=== PATIENT | female | born 1985 | race American Indian/Alaskan Native ===

== ENCOUNTER 2019-12-10 15:09 | Emergency (ER) | payer SELFPAY ==
[2019-12-10 15:20] VITALS: BP 132/69
--- NOTE | 2019-12-10 16:12 | XRay Report ---
LEFT FOOT, 2 VIEWS INDICATION / CLINICAL INFORMATION: Dropped heavy object on left foot. COMPARISON: None available. FINDINGS: Minimally displaced fracture of the proximal phalanx of the fourth toe. Signer Name: Artie Moulton MD Signed: 12/10/2019 4:08 PM Workstation Name: [id number]
--- NOTE | 2019-12-10 16:25 | Emergency Department Report ---
ED Lower Extremity HPI - General Chief Complaint: Extremity Injury, Lower Stated Complaint: LEFT FOOT PAIN Time Seen by Provider: 12/10/19 15:49 Source: patient Mode of arrival: Ambulatory Limitations: No Limitations - History of Present Illness Initial Comments: 34-year-old -Japanese female presents to the emergency room for 2-day history of left foot pain. Patient states that a heavy object had fallen her foot while she was at work on Thursday. 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 Patient has a past medical history of asthma. MD Complaint: foot injury Onset/Timin -: days(s) Injury: Foot: Left Type of Injury: other (Heavy object falling on foot) Place: work Severity scale (0 -10): 10 Improves With: NSAID Worsens With: weight bearing Treatments Prior to Arrival: NSAIDS - Related Data Previous Rx's Medication Instructions Recorded Last Taken Type ALBUTEROL Inhaler(NF) [VENTOLIN 1 puff IH QID PRN #1 inha 12/15/18 Unknown Rx Inhaler(NF)] Fluticasone [Flonase] 1 spray NS QDAY #1 bottle 12/15/18 Unknown Rx Montelukast [Singulair] 10 mg PO QPM #30 tablet 12/15/18 Unknown Rx Prednisone [predniSONE 10 mg 10 mg PO .TAPER #1 tab.ds.pk 12/15/18 Unknown Rx (6-Day Pack, 21 Tabs)] Cyclobenzaprine [Flexeril] 10 mg PO QHS PRN #10 tablet 05/06/19 Unknown Rx HYDROcodone/APAP 7.5-325 [Nelson 1 each PO Q8HR PRN #12 tablet 12/10/19 Unknown Rx 7.5/325] Ibuprofen [Motrin 800 MG tab] 800 mg PO Q8HR PRN #14 tablet 12/10/19 Unknown Rx Allergies Allergy/AdvReac Type Severity Reaction Status Date / Time No Known Allergies Allergy Unverified 12/15/18 19:09 ED Review of Systems ROS: Stated complaint: LEFT FOOT PAIN Other details as noted in HPI ED Past Medical Hx - Past Medical History Previous Medical History?: Yes Hx Asthma: Yes - Surgical History Past Surgical History?: Yes Additional Surgical History: Hysterectomy - Social History Smoking Status: Never Smoker Substance Use Type: Alcohol - Medications Home Medications: Home Medications Medication Instructions Recorded Confirmed Last Taken Type ALBUTEROL Inhaler(NF) [VENTOLIN 1 puff IH QID PRN #1 inha 12/15/18 Unknown Rx Inhaler(NF)] Fluticasone [Flonase] 1 spray NS QDAY #1 bottle 12/15/18 Unknown Rx Montelukast [Singulair] 10 mg PO QPM #30 tablet 12/15/18 Unknown Rx Prednisone [predniSONE 10 mg 10 mg PO .TAPER #1 tab.ds.pk 12/15/18 Unknown Rx (6-Day Pack, 21 Tabs)] Cyclobenzaprine [Flexeril] 10 mg PO QHS PRN #10 tablet 05/06/19 Unknown Rx HYDROcodone/APAP 7.5-325 [Nelson 1 each PO Q8HR PRN #12 tablet 12/10/19 Unknown Rx 7.5/325] Ibuprofen [Motrin 800 MG tab] 800 mg PO Q8HR PRN #14 tablet 12/10/19 Unknown Rx ED Physical Exam - General Limitations: No Limitations ED Course Vital Signs 12/10/19 15:13 Temperature 98.1 F Pulse Rate 88 Respiratory 18 Rate Blood Pressure 132/69 O2 Sat by Pulse 99 Oximetry ED Lower Extremity MDM - Radiology Data Radiology results: report reviewed Referring Physician:YOLIE SANDERSPatient Name:SHERI ARTEAGAPatient ID:[id number] of :[id number]:FemaleAccession:[id number] Date:[id number] Status:Finalized Findings [facility] [address] [place] [address] XRay Report Signed Patient: SHERI ARTEAGA MR#: [id number] : 1985 Acct:[id number] Age/Sex: 34 / F ADM Date: 12/10/19 Loc: ED Attending Dr: Ordering Physician: ELINOR GRAY Date of Service: 12/10/19 Procedure(s): XR foot 2V LT Accession Number(s): [id number] cc: ELINOR GRAY Fluoro Time In Minutes: LEFT FOOT, 2 VIEWS INDICATION / CLINICAL INFORMATION: Dropped heavy object on left foot. COMPARISON: None available. FINDINGS: Minimally displaced fracture of the proximal phalanx of the fourth toe. Signer Name: Artie Moulton MD Signed: 12/10/2019 4:08 PM Workstation Name: [id number] Transcribed By: ARMAAN Dictated By: Artie Moulton MD - Medical Decision Making 34-year-old -Japanese female presents to the emergency room for 2-day h istory of left foot pain. Patient states that a heavy object had fallen her foot while she was at work on Thursday. 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 Patient has a past medical history of asthma. Critical care attestation.: If time is entered above; I have spent that time in minutes in the direct care of this critically ill patient, excluding procedure time. ED Disposition Clinical Impression: Toe fracture, left Disposition: DC- TO HOME OR SELFCARE Is pt being admited?: No Does the pt Need Aspirin: No Condition: Stable Instructions: Toe Fracture (ED) Additional Instructions: X-ray shows you have a fracture of your fourth toe on your left foot. Take pain medication only as needed and do not have operate heavy machinery while taking Nelson. Take ibuprofen every 6-8 hours as needed for pain. It is very important for you to follow-up with an orthopedic provider I have listed 1 below for your convenience. Prescriptions: Ibuprofen [Motrin 800 MG tab] 800 mg PO Q8HR PRN #14 tablet PRN Reason: pain HYDROcodone/APAP 7.5-325 [Nelson 7.5/325] 1 each PO Q8HR PRN #12 tablet PRN Reason: Pain Referrals: MARK ANTHONY BALL MD [Primary Care Provider] - 3-5 Days ALAINA HUMPHREYS MD [Staff Physician] - 3-5 Days Forms: Work/School Release Form(ED)
== END 2019-12-10 16:37 | disposition home or self-care (01) ==
LOC: ED 15:09
DX: M84.478A Pathological fracture, left toe(s), initial encounter for fracture (principal); J45.909 Unspecified asthma, uncomplicated; Z90.710 Acquired absence of both cervix and uterus; Z79.899 Other long term (current) drug therapy; W31.89XA Contact with other specified machinery, initial encounter; Y93.89 Activity, other specified; Y92.89 Other specified places as the place of occurrence of the external cause; Y99.8 Other external cause status
CPT/HCPCS: 99283